=== PATIENT | male | born 1965 | race Caucasian/White ===

== ENCOUNTER 2017-10-17 13:00 | Emergency (ER) | payer MEDICAID, OTHER ==
[~2017-10-17] VITALS: Ht 162.6 cm; Wt 127.0 kg
[~2017-10-17 13:00] MED LIST: AMLO10TA80 PO; BENA10TA10 PO; DOCU-150 PO; FURO-151 PO; HYDR-4001 PO; LEVE10006 PO; LIP40 PO; MECL-109 PO; METO-293 PO; OMEP10CA4 PO
[2017-10-17 13:58] LABS: BASOPHILS % 3.2 % (0.0-2.0); EOSINOPHILS % 1.7 % (0.0-5.0); HEMATOCRIT. 43.2 % (42.0-52.0); HEMOGLOBIN. 14.8 g/dL (14.0-18.0); LYMPHOCYTES % 14.7 % (20.0-50.0); MEAN CORPUSCULAR HEMOGLOBIN 32.3 pg (28.0-32.0); MEAN CORPUSCULAR VOLUME 94.2 fL (80.0-94.0); MEAN PLATELET VOLUME 9.5 fl (7.4-10.4); MONOCYTES % 7.9 % (2.0-8.0); NEUTROPHILS % 72.5 % (40.0-76.0); PLATELET 166 x1000/uL (130-400); RED BLOOD CELL COUNT 4.58 mill/uL (4.7-6.1); RED CELL DISTRIBUTION WIDTH 14.5 % (11.6-14.6)
[2017-10-17 14:03] LABS: CHLORIDE 106 mEq/L (98-107)
[2017-10-17] MEDS ORDERED: HYDROCODONE/ACETAMINOPHEN 10/325MG TABLET PO ONE (16:15)
[2017-10-17] MEDS ORDERED: IBUPROFEN 600MG TABLET PO ONE (16:15)
[2017-10-17 16:46] LABS: CHLORIDE 106 mEq/L (98-107)
[2017-10-17 20:11] VITALS: BP 157/80
== END 2017-10-17 20:19 | disposition home or self-care (01) ==
LOC: ER 13:28
DX: R07.89 Other chest pain (principal); R42 Dizziness and giddiness; I50.9 Heart failure, unspecified; R60.0 Localized edema; Z79.899 Other long term (current) drug therapy
CPT/HCPCS: 36415; 71045; 80048; 80053; 84484; 85025; 87040; 93005; 93970; 99285

== ENCOUNTER 2018-03-25 20:20 | Emergency (ER) | payer OTHER ==
[~2018-03-25] VITALS: Ht 165.1 cm; Wt 105.0 kg
[2018-03-25 20:31] VITALS: BP 164/105
== END 2018-03-25 21:41 | disposition left against medical advice (07) ==
LOC: ER 20:20
DX: Z53.21 Procedure and treatment not carried out due to patient leaving prior to being seen by health care provider (principal)